=== PATIENT | female | born 1965 | race Caucasian/White ===

== ENCOUNTER → 2016-12-30 | Outpatient (CLI) | payer OTHER ==
--- NOTE | 2016-12-30 13:32 | DIAGNOSTIC IMAGING REPORT ---
ULTRASOUND KIDNEYS AND BLADDER CLINICAL HISTORY: Hematuria. Proteinuria. COMPARISON STUDY: No priors. TECHNIQUE: Real-time, grayscale, and color flow sonography of the kidneys and bladder is performed. Images are reviewed in the transverse and longitudinal planes. FINDINGS: Kidneys: The kidneys are normal in size and echotexture. The right kidney measures 12.2 cm in length and the left kidney measures 11.1 cm in length. There is no hydronephrosis. A 1.5 cm shadowing calculus is identified in the right kidney. There is no sonographic evidence of contour deforming renal mass lesion. No perinephric fluid is identified. Bladder: The bladder is normal in appearance. Bilateral ureteral jets were seen. Upper abdomen: Survey images of the liver show hepatomegaly and hepatic steatosis. IMPRESSION: 1. The kidneys are normal in size and without hydronephrosis. 2. Right-sided nephrolithiasis. 3. The bladder is normal as imaged. Electronically signed by: Eliseo Turner M.D. 12/30/2016 1:31 PM Dictated Date/Time: 12/30/2016 1:29 PM
--- NOTE | 2016-12-30 13:33 | DIAGNOSTIC IMAGING REPORT ---
EXAMINATION: PELVIC ULTRASOUND CLINICAL HISTORY: HEMATURIA,PROTEINURIA PELVIC PAIN COMPARISON STUDY: None FINDINGS: The uterus measured 8.8 x 4.5 x 4.4 cm. There is a complex 8 mm nabothian gland cyst. Multiple uterine fibroids are visualized the largest of which is located within the right uterine body measuring 16 mm. There is 8 mm fibroid within the left uterine fundus. The endometrial stripe measured 4 mm. The right ovary measured 24 x 15 x 13 mm. The left ovary measured 23 x 13 x 18 mm.. There is no ultrasonographic evidence of ovarian torsion. It should be noted that ovarian torsion can be present with normal Doppler ultrasonographic findings. There was no evidence of pathologic free pelvic fluid. IMPRESSION: 1. Uterine fibroids, the largest of which measures 16 mm. 2. 4 mm endometrial stripe. Electronically signed by: Mynor Otero M.D. 12/30/2016 1:32 PM Dictated Date/Time: 12/30/2016 1:29 PM
== END | disposition home or self-care (01) ==
LOC: EDBD → C.ULTR 12:23
PROVIDERS: ATTEND Family Medicine
DX: R31.9 Hematuria, unspecified (principal); R80.9 Proteinuria, unspecified; R10.2 Pelvic and perineal pain; D25.9 Leiomyoma of uterus, unspecified; N20.0 Calculus of kidney

== ENCOUNTER → 2017-04-21 | Outpatient (CLI) | payer OTHER ==
--- NOTE | 2017-04-21 13:40 | DIAGNOSTIC IMAGING REPORT ---
KUB CLINICAL HISTORY: Calculus of kidney. COMPARISON STUDY: Renal ultrasound December 30, 2016. FINDINGS: No ureteral calculi are identified. There is a probable 2.1 x 0.9 cm calculus within the midpole of the right kidney/right renal pelvis which corresponds to the calculus shown on ultrasound of December 30, 2016. The bowel gas pattern is normal. IMPRESSION: 1. 2.1 x 0.9 cm right renal calculus which corresponds to the calculus shown on ultrasound December 30, 2016. This may be within a midpole calyx or the renal pelvis. 2. No ureteral calculi. Electronically signed by: Edward Steward M.D. 04/21/2017 1:39 PM Dictated Date/Time: 04/21/2017 1:37 PM
== END | disposition home or self-care (01) ==
LOC: C.RAD 12:50
PROVIDERS: ATTEND Urology
DX: N20.0 Calculus of kidney (principal)

== ENCOUNTER → 2017-05-05 | Outpatient (CLI) | payer OTHER ==
[~2017-05-05] MED LIST: ACET-1256 PO; IBUP-103 PO; MISCCAP80 PO; MULT-506 PO; OMEG10007 PO; SERT-234 PO; SIME80CH PO; VITAMIN D PO; VNTHFA/IN INH; ZANTAC PO
--- NOTE | 2017-05-05 12:58 | DIAGNOSTIC IMAGING REPORT ---
ABD/PELVIS NO IV OR ORAL CONT CLINICAL HISTORY: 51 years-old Female presenting with right-sided kidney stone, right flank pain. TECHNIQUE: Multidetector CT of the abdomen and pelvis was performed without the use of intravenous contrast. IV contrast: None. A dose lowering technique was used consistent with the principles of ALARA (as low as reasonably achievable). COMPARISON: None. CT DOSE (mGy.cm): The estimated cumulative dose is 690.31 mGycm. FINDINGS: [employer] Chair topogram: Unremarkable. Lung bases: Lungs and pleural spaces clear. Normal heart size. No pericardial or pleural effusion. Liver: Normal morphology. Density consistent with hepatic steatosis. Biliary: No gross biliary ductal dilatation allowing for noncontrast technique. Normal gallbladder. Pancreas: Normal noncontrast appearance. Spleen: Normal noncontrast appearance. Adrenal glands: Normal noncontrast appearance. Kidneys and ureters: Obstructing 9 mm calculus at the right ureteropelvic junction. The right renal collecting system contains somewhat high density material greater than what is expected for simple urine. Mild right pelvocaliectasis. Mild periureteral fat stranding at the renal pelvis. The remainder of the right ureter is normal. No additional renal calculi in either kidney. No left hydronephrosis. Left ureter normal. Bladder: Incompletely evaluated secondary to underdistention. Pelvic organs: Normal noncontrast appearance. Bowel: Diverticulosis of the distal sigmoid colon. No pericolonic fat stranding. Mild stool burden throughout the normal caliber colon. The appendix is normal. High density material in the appendix may suggest prior contrast or appendicoliths. Peritoneal cavity: No free fluid or intraperitoneal gas. 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 Lymph nodes: No pathologically enlarged lymph nodes by CT size criteria. Vasculature: Normal noncontrast appearance. Abdominal wall: Diastasis of the rectus abdominis. Musculoskeletal: Normal. IMPRESSION: 1. Obstructing 9 mm calculus at the right ureteropelvic junction with resultant mild right hydronephrosis. The right renal collecting system contains rather high density material, greater than expected for simple urine. This may imply inspissated urine, hemorrhage, or infectious debris. No additional renal or ureteral calculus. Electronically signed by: Chaim Tucker M.D. 05/05/2017 12:56 PM Dictated Date/Time: 05/05/2017 12:50 PM
== END | disposition home or self-care (01) ==
LOC: C.CTS 12:30
PROVIDERS: ATTEND Urology
DX: N20.0 Calculus of kidney (principal)

== ENCOUNTER 2017-05-19 07:59 | Day surgery (SDC) | payer OTHER ==
[2017-05-05 13:35] VITALS: BMI 31.0
--- NOTE | 2017-05-05 14:06 | PAT Medication Instructions ---
Service Date May 05, 2017. Current Home Medication List Acetaminophen (Tylenol), 1,000 MG PO PRN Albuterol Hfa (Ventolin Hfa), 2 PUFFS INH Q6H PRN for PRN Fish Oil ([place]-3), 1 CAP PO QAM Ibuprofen Tab (Advil), 400 MG PO PRN Multivitamin (Multivitamin), 1 TAB PO QAM Probiotic Product (Probiotic), 1 TAB PO QAM Sertraline (Zoloft), 100 MG PO QAM Simethicone (Gas-X), 80 MG PO PRN [Vitamin D], 400 UNITS PO QAM [Zantac], 75 MG PO BID Medication Instructions For Your Scheduled Surgery - Check with surgeon for instructions: Ibuprofen Tab (Advil), 400 MG PO PRN - Hold the following medications starting 05/06/17: Fish Oil ([place]-3), 1 CAP PO QAM - Hold the following medications the morning of surgery: Multivitamin (Multivitamin), 1 TAB PO QAM Probiotic Product (Probiotic), 1 TAB PO QAM Simethicone (Gas-X), 80 MG PO PRN [Vitamin D], 400 UNITS PO QAM [Zantac], 75 MG PO BID - Take the following medications the morning of surgery with a sip of water: Sertraline (Zoloft), 100 MG PO QAM Albuterol Hfa (Ventolin Hfa), 2 PUFFS INH Q6H PRN for PRN (if needed) Acetaminophen (Tylenol), 1,000 MG PO PRN (okay to take up to 4 hours prior to surgery if needed) - Take the following medications as scheduled the night before surgery: [Zantac], 75 MG PO BID Simethicone (Gas-X), 80 MG PO PRN (if needed) Albuterol Hfa (Ventolin Hfa), 2 PUFFS INH Q6H PRN for PRN (if needed) Acetaminophen (Tylenol), 1,000 MG PO PRN (if needed) If you have any questions please call us at [phone] or [phone] or [phone]
--- NOTE | 2017-05-05 14:35 | DIAGNOSTIC IMAGING REPORT ---
CHEST 2 VIEWS ROUTINE CLINICAL HISTORY: 51 years-old Female presenting with preoperative assessment. TECHNIQUE: PA and lateral views of the chest were obtained. COMPARISON: None. FINDINGS: Atherosclerosis of the aortic arch. Cardiac silhouette normal in size. Lungs and pleural spaces clear. Osseous structures normal. Upper abdomen normal. IMPRESSION: 1. No acute cardiopulmonary disease. Electronically signed by: Chaim Tucker M.D. 05/05/2017 2:34 PM Dictated Date/Time: 05/05/2017 2:33 PM
[2017-05-05 14:45] LABS: CALCIUM 9.7 mg/dl (8.5-10.1); CREATININE 0.61 mg/dl (0.60-1.20); POTASSIUM 3.9 mmol/L (3.5-5.1)
[2017-05-05 15:22] LABS: BASO % 0.2 %; BASO ABS # 0.02 K/uL (0-0.2); EOS % 3.4 %; EOS ABS # 0.28 K/uL (0-0.5); HEMATOCRIT 41.8 % (37-47); IG# 0.01 K/uL (0.00-0.02); LYMPH % 31.8 %; LYMPH ABS # 2.61 K/uL (1.2-3.4); MEAN CELL VOLUME 88.4 fL (80-100); MEAN CORPUSCULAR HEMOGLOBIN 29.6 pg (25-34); MEAN CORPUSCULAR HGB CONC 33.5 g/dl (32-36); MEAN PLATELET VOLUME 8.7 fL (7.4-10.4); MONO % 6.8 %; MONO ABS # 0.56 K/uL (0.11-0.59); NEUT % 57.7 %; NEUT ABS # 4.72 K/uL (1.4-6.5); PLATELET COUNT 271 K/uL (130-400); RED CELL DISTRIBUTION WIDTH CV 12.3 % (11.5-14.5); RED CELL DISTRIBUTION WIDTH SD 39.4 fL (36.4-46.3)
[~2017-05-19] VITALS: Ht 154.9 cm; Wt 74.7 kg
[~2017-05-19 07:59] MED LIST changes: +LACTATED RINGER'S 1000ML 1,000 ML IV SCH; +SCOPOLAMINE 1.5 MG TDSY TD SCH
[2017-05-19] MEDS ORDERED: ONDANSETRON INJ 2 MG/ML 2 ML VIAL IV PRN (08:00)
[2017-05-19] MEDS ORDERED: ATROPINE SULFATE 0.1 MG/ML 5ML SYR IV PRN (08:00)
[2017-05-19] MEDS ORDERED: EpHEDrine SULFATE INJ 50 MG/ML AMP IV PRN (08:00)
[2017-05-19] MEDS ORDERED: TAMS0.4C38 PO (08:21)
[2017-05-19 08:23] VITALS: BP 142/80; PULSE 81; TEMP 36.7; O2SAT 97; Ht 154.9 cm; Wt 74.7 kg
--- NOTE | 2017-05-19 08:40 | History & Physical Bridge Note ---
H&P Re-Evaluation Bridge Note: I have examined the patient, reviewed the History & Physical and in the interval since the performance of the History & Physical I have noted the following changes of clinical significance: No changes noted
[2017-05-19] MEDS ORDERED: CIPR-255 PO (08:47)
[2017-05-19] MEDS ORDERED: PHEN-775 PO (08:47)
[2017-05-19] MEDS ORDERED: OXYC7.5T65 PO (08:47)
--- NOTE | 2017-05-19 08:48 | Discharge Instructions ---
Discharge Instructions Date of Service May 19, 2017. Admission Reason for Admission: Stones Discharge Discharge Diagnosis / Problem: Stone Discharge Goals Goal(s): Decrease discomfort, Improve function Activity Recommendations Activity Limitations: resume your previous activity Lifting Limitations: gradually increase as tolerated Exercise/Sports Limitations: gradually increase as tolerated Shower/Bathe: no limitations . Instructions / Follow-Up Instructions / Follow-Up May have blood in urine or pain with voiding. may have urgency or frequency. Call if any fevers or chills. Current Hospital Diet Patient's current hospital diet: Discharge Diet Recommended Diet: Regular Diet Procedures Procedures Performed: Cystoscopy and Right Ureteroscopy/Laser lithotripsy Pending Studies Studies pending at discharge: no Medical Emergencies . Who to Call and When: Medical Emergencies: If at any time you feel your situation is an emergency, please call 911 immediately. . Non-Emergent Contact Non-Emergency issues call your: Primary Care Provider, Urologist Call Non-Emergent contact if: you have a fever, temperature is above 101, temperature is above 101.5, your pain is not controlled, your pain is worsening , your pain is unusual for you . . "Provider Documentation" section prepared by Malcolm Dobson. .
[2017-05-19] MEDS ORDERED: OXYCODONE/ACETAMINOPHEN 7.5-325 TAB PO PRN (09:00)
[2017-05-19] MEDS ORDERED: PROPOFOL IV EMULSION 10 MG/ML 20 ML VIAL IV ONE (09:26)
[2017-05-19] MEDS ORDERED: LIDOCAINE HCL 2% 2 ML VIAL (20MG/ML) ONE (09:26)
[2017-05-19] MEDS ORDERED: ONDANSETRON INJ 2 MG/ML 2 ML VIAL ONE (09:26)
[2017-05-19] MEDS ORDERED: MIDAZOLAM HCL 1 MG/ML 2ML VIAL ONE (09:26)
[2017-05-19] MEDS ORDERED: DEXAMETHASONE SOD INJ 4 MG/ML VIAL ONE (09:26)
[2017-05-19] MEDS ORDERED: FENTANYL CITRATE INJ 50 MCG/1 ML 2 ML VIAL ONE (09:27)
[2017-05-19] MEDS: CIPROFLOXACIN / D5W 400 MG IV SCH ×2 (10:03→10:04)
[2017-05-19] MEDS ORDERED: Cysto-Conray II 17.2% 250ML BOTTLE ONE (10:05)
[2017-05-19] MEDS ORDERED: EpHEDrine SULFATE 50MG/5ML SYR ONE (10:32)
--- NOTE | 2017-05-19 10:54 | [facility] Operative Report ---
Operative Report Operative Date May 19, 2017. Pre-Operative Diagnosis Right Stone, UPJ Post-Operative Diagnosis Same Procedure(s) Performed Cystoscopy with right ureteroscopy, Laser lithotripsy, stone extraction, stent placement and retrograde pyelogram Surgeon Bronson Estimated Blood Loss Minimal Findings Large Right UPJ stone with considerable matrix stone material Specimens Stone fragment Drains 6 Fr Multilength Anesthesia Type General Complication(s) none Disposition Recovery Room / PACU Indications Stone on right with discomfort. Risks and benefits discussed at length. Description of Procedure Patient was consented and brought back to the operating room. Patient was placed under anesthesia in the supine position and moved to the dorsal lithotomy position. Patient was prepped and draped in the regular sterile fashion. A time out was completed. A 30degree Cystoscope was placed into the bladder and the entire bladder was examined. The UO's were identified. The right side was cannulized with a catheter and a retrograde pyelogram was completed. A wire was then placed. With the wire in place, a second wire was placed with a ureteral access sheath. The flexible ureteroscope was selected and taken to the pelvis. The large 9mm stone with considerable stone matrix material was observed. The laser was selected and the stone was pulverized to dust and small fragments. A larger fragment was grasped and removed. The stone was completely treated and destroyed to small fragments and Dust. The entire pelvis was examined. No other areas of concern were noted. The scope was slowly removed. The entire ureter was examined. The safety had been left in place. With the wire in place, a 6 Fr Multilength Double J stent was placed. It was confirmed with fluoroscopy. With the stent in place, the bladder was emptied. The scope was removed. The patient was cleaned, aroused from anesthesia, and transferred to the pacu in stable condition having tolerated the procedure well with no complications. I was present and participated in all aspects of the procedure. The patient will be monitored in the PACU until transferred. I attest to the content of the Intraoperative Record and any orders documented therein. Any exceptions are noted below.
[2017-05-19] MEDS ORDERED: KETOROLAC TROMETHAMINE 30 MG/ML VIAL ONE (10:56)
[2017-05-19] MEDS: FENTANYL CITRATE INJ 50 MCG/1 ML 2 ML VIAL IV PRN ×4 (11:12→11:28)
--- NOTE | 2017-05-19 11:16 | DIAGNOSTIC IMAGING REPORT ---
RETROGRADE INCLUDES KUB CLINICAL HISTORY: RT LITHO/LASER STENT INSERTION COMPARISON STUDY: CT of the abdomen and pelvis May 05, 2017. Fluoroscopy time: 49 seconds. FINDINGS: 4 fluoroscopic images from right retrograde exam were submitted for interpretation. These images demonstrate cannulation of the right ureter with placement of a right ureteral stent which appears appropriately positioned. The calculus shown on exam May 05, 2017 is not well visualized on this exam. IMPRESSION: Fluoroscopic images from right retrograde exam with ureteral stent insertion. Electronically signed by: Edward Steward M.D. 05/19/2017 11:15 AM Dictated Date/Time: 05/19/2017 11:13 AM
--- NOTE | 2017-05-19 11:39 | Anesthesiology Progress Note ---
Anesthesia Post Op Note Date & Time May 19, 2017 at 11:39 Vital Signs Pain Intensity: 4 Vital Signs Past 12 Hours Date Time Temp Pulse Resp B/P (MAP) Pulse Ox O2 Delivery O2 Flow Rate FiO2 05/19/17 11:35 71 14 137/73 93 Nasal Cannula 4 05/19/17 11:25 69 14 123/79 93 Oxymask 10 05/19/17 11:15 90 14 134/86 93 Oxymask 10 05/19/17 11:05 72 14 129/82 94 Oxymask 10 05/19/17 10:59 36.6 86 14 136/90 94 Oxymask 10 05/19/17 08:23 36.7 81 18 142/80 (100) 97 Room Air Notes Mental Status: alert / awake / arousable, participated in evaluation Pt Amnestic to Procedure: Yes Nausea / Vomiting: adequately controlled Pain: adequately controlled Airway Patency, RR, SpO2: stable & adequate BP & HR: stable & adequate Hydration State: stable & adequate Anesthetic Complications: no major complications apparent
[2017-05-19 11:50] VITALS: BP 139/76; PULSE 90; TEMP 36.4; O2SAT 91
[2017-05-19 12:20] VITALS: BP 127/70; PULSE 78; O2SAT 95
[2017-05-19 12:50] VITALS: TEMP 36.8; O2SAT 95
[2017-05-19] MEDS ORDERED: CHECK SCOPOLAMINE PATCH PLACEMENT SCH (16:00)
== END 2017-05-19 13:03 | disposition home or self-care (01) ==
LOC: C.ACU 07:59
PROVIDERS: ATTEND Urology
DX: N20.0 Calculus of kidney (principal); F32.9 Major depressive disorder, single episode, unspecified; J45.909 Unspecified asthma, uncomplicated; E66.9 Obesity, unspecified; K21.9 Gastro-esophageal reflux disease without esophagitis; Z82.49 Family history of ischemic heart disease and other diseases of the circulatory system; Z80.42 Family history of malignant neoplasm of prostate; Z83.3 Family history of diabetes mellitus

== ENCOUNTER → 2017-06-03 | Day surgery (SDC) | payer OTHER ==
[2017-05-05 14:59] VITALS: Ht 154.9 cm; Wt 74.7 kg
[~2017-06-03] VITALS: Ht 154.9 cm; Wt 74.7 kg
[~2017-06-03] MED LIST changes: +ATROPINE SULFATE 0.1 MG/ML 5ML SYR IV PRN; +CEFU1TAB35 PO; +CHECK SCOPOLAMINE PATCH PLACEMENT SCH; +CIPR-255 PO; +CIPROFLOXACIN / D5W 400 MG IV SCH; +Cysto-Conray II 17.2% 250ML BOTTLE ONE; +DEXAMETHASONE SOD INJ 4 MG/ML VIAL ONE; +EpHEDrine SULFATE 50MG/5ML SYR ONE; +EpHEDrine SULFATE INJ 50 MG/ML AMP IV PRN; +FENTANYL CITRATE INJ 50 MCG/1 ML 2 ML VIAL ONE; +FLUC100T4 PO; +LIDOCAINE HCL 2% 2 ML VIAL (20MG/ML) ONE; +MIDAZOLAM HCL 1 MG/ML 2ML VIAL ONE; +ONDANSETRON INJ 2 MG/ML 2 ML VIAL IV PRN; +ONDANSETRON INJ 2 MG/ML 2 ML VIAL ONE; +OXYC-57 PO; +OXYC7.5T65 PO; +OXYCODONE/ACETAMINOPHEN 7.5-325 TAB PO PRN; +PHEN-876 PO; +PHENYLEPHRINE 100MCG/ML 5ML SYR ONE; +PROPOFOL IV EMULSION 10 MG/ML 20 ML VIAL IV ONE; +TAMS0.4C38 PO
--- NOTE | 2017-06-03 09:01 | Discharge Instructions ---
Discharge Instructions Date of Service Jun 03, 2017. Admission Reason for Admission: Stones Discharge Discharge Diagnosis / Problem: Stone Discharge Goals Goal(s): Decrease discomfort, Improve function Activity Recommendations Activity Limitations: resume your previous activity Lifting Limitations: gradually increase as tolerated Exercise/Sports Limitations: gradually increase as tolerated . Instructions / Follow-Up Instructions / Follow-Up May have blood in urine. May have pain in pelvis or flank. Call if any fevers or chills. Continue antibiotics until complete full course. Current Hospital Diet Patient's current hospital diet: Discharge Diet Recommended Diet: Regular Diet Procedures Procedures Performed: Cystoscopy, Right Ureteroscopy, Laser Lithotripsy, Retrograde, Stent Pending Studies Studies pending at discharge: no Medical Emergencies . Who to Call and When: Medical Emergencies: If at any time you feel your situation is an emergency, please call 911 immediately. . Non-Emergent Contact Non-Emergency issues call your: Primary Care Provider, Urologist Call Non-Emergent contact if: you have a fever, temperature is above 101, temperature is above 101.5, your pain is not controlled, your pain is worsening , your pain is unusual for you . . "Provider Documentation" section prepared by Malcolm Dobson. .
[2017-06-03 09:07] VITALS: BP 182/93; PULSE 88; TEMP 36.7; O2SAT 98
--- NOTE | 2017-06-03 10:31 | [facility] Operative Report ---
Operative Report Operative Date Jun 03, 2017. Pre-Operative Diagnosis Large Right Stone, UPJ Post-Operative Diagnosis Same Procedure(s) Performed Cystoscopy, Right Ureteroscopy, Laser Lithotripsy, Stone basket extraction, Retrograde, Stent Surgeon Bronson Estimated Blood Loss Minimal Findings Large amount of small stone fragments from previous treatment. Specimens Stone for analysis Drains 6 Fr Multilength Anesthesia Type General Complication(s) none Disposition Recovery Room / PACU Indications Large stone with large amount of debris. Concern for possible infection stone, treated with antibiotics and stone passage. Risks and benefits discussed at length. Description of Procedure Patient was consented and brought back to the operating room. Patient was placed under anesthesia in the supine position and moved to the dorsal lithotomy position. Patient was prepped and draped in the regular sterile fashion. A time out was completed. A 30degree Cystoscope was placed into the bladder and the entire bladder was examined. The UO's were identified. The right UO was canalized with a 5 fr catheter and a retrograde was completed. A wire was placed. A second wire and a ureteral access sheath was then placed. The flexible ureteroscope was selected and the scope taken to the pelvis. A large amount of very small stone fragments and a minor amount of debris material was appreciated. Some larger fragments were identified and they were pulverized to dust and small fragments. One fragments was removed with a zero-tip basket. The entire pelvis was better examined. No larger fragments remained. The pelvis appeared clear with only small stone fragments and dust. A this point, a retrograde pyelogram was completed. The scope was slowly removed visualizing the entire ureter. An area of tightness was appreciated in the proximal ureter, however this was easily bypassed by the scope. No masses, lesions, or stone fragments. The safety wire remained in place. With the wire in place, a 6 Fr Double J stent was placed. It was confirmed with fluoroscopy. With the stent in place, the bladder was emptied. The scope was removed. The patient was cleaned, aroused from anesthesia, and transferred to the pacu in stable condition having tolerated the procedure well with no complications. I was present and participated in all aspects of the procedure. The patient will be monitored in the PACU until transferred. Patient will be discharged with antifungals and antibiotics and plan to follow up to confirm complete stone clearance. I attest to the content of the Intraoperative Record and any orders documented therein. Any exceptions are noted below.
[2017-06-03] MEDS: FENTANYL CITRATE INJ 50 MCG/1 ML 2 ML VIAL IV PRN ×4 (10:42→10:58)
--- NOTE | 2017-06-03 10:48 | DIAGNOSTIC IMAGING REPORT ---
INTRAOPERATIVE RADIOGRAPHS CLINICAL HISTORY: Right-sided laser lithotripsy and stent placement. Fluoroscopy time: 65 seconds. FINDINGS: 4 spot fluoroscopic views of the right abdomen from a lithotripsy and stent placement procedure are presented. Initial image shows cannulation of the right renal collecting system without hydronephrosis. The second image shows a lithotripsy device in place. The final 2 images show a right ureteral stent being deployed and in appropriate position. IMPRESSION: Intraoperative images from a right-sided lithotripsy and stent placement procedure as above. See operative report for detailed findings. Electronically signed by: Eliseo Turner M.D. 06/03/2017 10:47 AM Dictated Date/Time: 06/03/2017 10:43 AM
[2017-06-03 11:25] VITALS: BP 142/67; PULSE 90; TEMP 36.6; O2SAT 97
--- NOTE | 2017-06-03 14:15 | Anesthesiology Progress Note ---
Anesthesia Post Op Note Date & Time Jun 03, 2017 at 14:14 Vital Signs Pain Intensity: 2 Vital Signs Past 12 Hours Date Time Temp Pulse Resp B/P (MAP) Pulse Ox O2 Delivery O2 Flow Rate FiO2 06/03/17 11:25 36.6 90 16 142/67 97 Room Air 06/03/17 11:15 36.1 79 16 143/77 94 Room Air 06/03/17 11:05 92 16 127/85 94 Room Air 06/03/17 10:55 81 16 141/70 99 Oxymask 10 06/03/17 10:45 95 16 137/76 97 Oxymask 10 06/03/17 10:37 36.2 101 16 139/77 97 Oxymask 10 06/03/17 09:07 36.7 88 18 182/93 (122) 98 Room Air Notes Mental Status: alert / awake / arousable, participated in evaluation Pt Amnestic to Procedure: Yes Nausea / Vomiting: adequately controlled Pain: adequately controlled Airway Patency, RR, SpO2: stable & adequate BP & HR: stable & adequate Hydration State: stable & adequate Anesthetic Complications: no major complications apparent
== END | disposition home or self-care (01) ==
LOC: C.ACU 08:30
PROVIDERS: ATTEND Urology
DX: N20.0 Calculus of kidney (principal); E78.00 Pure hypercholesterolemia, unspecified; K21.9 Gastro-esophageal reflux disease without esophagitis; J45.909 Unspecified asthma, uncomplicated; E66.9 Obesity, unspecified; F32.9 Major depressive disorder, single episode, unspecified; Z82.49 Family history of ischemic heart disease and other diseases of the circulatory system; Z80.42 Family history of malignant neoplasm of prostate; Z83.3 Family history of diabetes mellitus

== ENCOUNTER → 2017-06-11 | Outpatient (CLI) | payer OTHER ==
[~2017-06-11] MED LIST changes: -ATROPINE SULFATE 0.1 MG/ML 5ML SYR IV PRN; -CHECK SCOPOLAMINE PATCH PLACEMENT SCH; -CIPROFLOXACIN / D5W 400 MG IV SCH; -Cysto-Conray II 17.2% 250ML BOTTLE ONE; -DEXAMETHASONE SOD INJ 4 MG/ML VIAL ONE; -EpHEDrine SULFATE 50MG/5ML SYR ONE; -EpHEDrine SULFATE INJ 50 MG/ML AMP IV PRN; -FENTANYL CITRATE INJ 50 MCG/1 ML 2 ML VIAL ONE; -FLUC100T4 PO; -LACTATED RINGER'S 1000ML 1,000 ML IV SCH; -LIDOCAINE HCL 2% 2 ML VIAL (20MG/ML) ONE; -MIDAZOLAM HCL 1 MG/ML 2ML VIAL ONE; -ONDANSETRON INJ 2 MG/ML 2 ML VIAL IV PRN; -ONDANSETRON INJ 2 MG/ML 2 ML VIAL ONE; -OXYCODONE/ACETAMINOPHEN 7.5-325 TAB PO PRN; -PHENYLEPHRINE 100MCG/ML 5ML SYR ONE; -PROPOFOL IV EMULSION 10 MG/ML 20 ML VIAL IV ONE; -SCOPOLAMINE 1.5 MG TDSY TD SCH
--- NOTE | 2017-06-11 14:41 | DIAGNOSTIC IMAGING REPORT ---
KUB HISTORY: Follow-up study in a patient with right-sided renal calculus N20.0 Calculus of kidneyTO BE DONE EITHER THE NIGHT BEFORE OR MO COMPARISON: KUB 06/03/2017 and 05/26/2017 FINDINGS: The bowel gas pattern is non-obstructive. There is no organomegaly. Right-sided ureteral stent appears to be in satisfactory positioning. Inferior pole right kidney is partially obscured by bowel gas. Previously noted large calculus projecting over the inferior pole right kidney is not definitively seen. No definite calculi along the course of the ureter. No pneumoperitoneum or pneumatosis. No fracture. IMPRESSION: 1. Satisfactory positioning of right-sided ureteral stent. 2. No definite nephrolithiasis or ureteral calculi identified. Electronically signed by: Rylan French M.D. 06/11/2017 2:40 PM Dictated Date/Time: 06/11/2017 2:38 PM
== END | disposition home or self-care (01) ==
LOC: C.RAD 14:18
PROVIDERS: ATTEND Urology
DX: N20.0 Calculus of kidney (principal)